=== PATIENT | female | born 1980 | race Caucasian/White ===

== ENCOUNTER → 2022-09-07 07:20 | Outpatient (CLI) | payer OTHER, SELFPAY ==
[2022-09-07 09:14] LABS: Influenza A - CEPHEID Flu A POSITIVE (NEGATIVE); Influenza B - CEPHEID Flu B NEGATIVE (NEGATIVE); Respiratory Syncytial Virus Negative (Negative)
[2022-09-07 09:15] LABS: COVID-19 CEPHEID 4-PLEX PCR Negative (Negative)
== END ==
PROVIDERS: Visit Provider Nurse Practitioner Family
DX: R05.1 Acute cough (principal); Z20.822 Contact with and (suspected) exposure to COVID-19
CPT/HCPCS: 0241U

== ENCOUNTER → 2023-09-17 08:35 | Outpatient (CLI) | payer OTHER, SELFPAY ==
[2023-09-17 09:52] LABS: Add Manual Diff / Slide Review NO; Basophils Absolute Auto 100 /uL (0-100); Basophils Percent Auto 0.9 % (0-2); Eosinophils Absolute Auto 0 /uL (0-450); Eosinophils Percent Auto 0.6 % (2-4); Hematocrit 35.9 % (36-46); Hemoglobin 12.1 g/dL (12.0-16.0); Lymphocytes Absolute Auto 2300 /uL (1100-4500); Lymphocytes Percent Auto 31.6 % (25-40); Mean Corpuscular HGB Conc 33.8 % (30-36); Mean Corpuscular Hemoglobin 30.6 PG (26-34); Mean Corpuscular Volume 90.4 fL (80-100); Monocytes Absolute Auto 600 /uL (0-900); Monocytes Percent Auto 8.6 % (3-14); Neutrophils Absolute Auto 4300 /uL (1500-7000); Neutrophils Percent Auto 58.3 % (50-75); Platelet Count 252 X10^3/uL (150-400); Red Blood Cell Count 3.97 X10^6/uL (4.0-5.2); Red Cell Distribution Width 13.7 % (11.6-14.8); White Blood Cell Count 7.4 X10^3/uL (4.5-11.0)
[2023-09-17 09:53] LABS: Hemoglobin A1C% w Est Avg Glu 5.1 % (4.0-6.0)
[2023-09-17 10:04] LABS: Alanine Aminotransferase 22 IU/L (<35); Albumin 4.4 g/dL (3.5-5.0); Albumin Globulin Ratio 1.5 (1.0-2.8); Alkaline Phosphatase 58 U/L (38-126); Aspartate Aminotransferase 24 IU/L (14-36); BUN Creatinine Ratio 15.2 (6-22); Bilirubin Total 1.4 mg/dL (0.2-1.3); Blood Urea Nitrogen 10 mg/dL (7-17); Calcium 9.4 mg/dL (8.4-10.2); Carbon Dioxide 24 mmol/L (22-32); Chloride 102 mmol/L (98-107); Cholesterol 172 mg/dL (140-199); Estimated Glomerular Filt Rate > 60 mL/min (>60); Globulin 2.9 g/dL (1.7-4.1); Glucose 85 mg/dL (70-100); HDL Cholesterol 48 mg/dL (40-60); HEMOLYSIS < 15 (0-50); LDL Cholesterol Calculated 104 mg/dL (<100); Sodium 135 mmol/L (137-145); Total Protein 7.3 g/dL (6.3-8.2); Triglycerides 98 mg/dL (35-150)
[2023-09-17 10:33] LABS: TSH w/ Reflex to FT4 3.19 uIU/mL (0.47-4.68)
== END ==
PROVIDERS: PCP Student in an Organized Health Care Education/Training Program; Referring Provider Student in an Organized Health Care Education/Training Program; Visit Provider Student in an Organized Health Care Education/Training Program
DX: R63.5 Abnormal weight gain (principal)
CPT/HCPCS: 36415; 80053; 80061; 83036; 84443; 85025

== ENCOUNTER → 2023-09-25 09:38 | Outpatient (CLI) | payer OTHER, SELFPAY ==
--- NOTE | 2023-09-25 09:39 | DI.MG.S_ITS ---
BILATERAL DIGITAL SCREENING MAMMOGRAM 3D/2D WITH CAD: 09/25/2023 CLINICAL: Routine screening. Baseline exam. No prior exams were available for comparison. Both breasts are heterogeneously dense, which may obscure small masses (category c / 51-75% glandular tissue). Current study was also evaluated with a Computer Aided Detection (CAD) system. No significant masses, calcifications, or other findings are seen in either breast. IMPRESSION: NEGATIVE There is no mammographic evidence of malignancy. A 1 year screening mammogram is recommended. Based on the Tyrer Cuzick model (a risk assessment model) the patient's lifetime risk is 9.3% and her 10 year risk is 1.5%. According to the ACR, ACS, and NCCN guidelines, an annual breast MRI exam along with mammogram is recommended if the patient's lifetime risk is 20% or greater. This exam was interpreted at Station ID: [id number]. NOTE: For mammograms, a report in lay terms will be sent to the patient. Approximately 15% of breast malignancies will not be visualized mammographically. In the management of a palpable breast mass, a negative mammogram must not discourage biopsy of a clinically suspicious lesion. Electronically Signed By: Jalen cunningham/katerina:09/28/2023 07:49:33 letter sent: Normal Exam ACR BI-RADS Category 1: Negative 3341F
== END ==
PROVIDERS: PCP Student in an Organized Health Care Education/Training Program; Referring Provider Student in an Organized Health Care Education/Training Program; Visit Provider Student in an Organized Health Care Education/Training Program
DX: Z12.31 Encounter for screening mammogram for malignant neoplasm of breast (principal)
CPT/HCPCS: 77063; 77067

== ENCOUNTER → 2024-05-30 13:35 | Outpatient (CLI) | payer OTHER, SELFPAY ==
[2024-05-30 14:29] LABS: Influenza A - CEPHEID Flu A NEGATIVE (NEGATIVE); Influenza B - CEPHEID Flu B NEGATIVE (NEGATIVE); Respiratory Syncytial Virus Negative (Negative)
[2024-05-30 14:35] LABS: COVID-19 CEPHEID 4-PLEX PCR POSITIVE (Negative)
== END ==
PROVIDERS: PCP Student in an Organized Health Care Education/Training Program; Visit Provider Nurse Practitioner Family
DX: R05.1 Acute cough (principal); J02.9 Acute pharyngitis, unspecified
CPT/HCPCS: 0241U; 87070; 87077; 87147

== ENCOUNTER 2024-07-07 09:40 | Emergency (ER) | payer OTHER, SELFPAY ==
[2024-07-07] VITALS (20 sets, daily range): BP systolic 100–128; BP diastolic 58–75; PULSE 74–115; RESP 15–20; TEMP 36.4; O2SAT 98–100; BMI 31.7
--- NOTE | 2024-07-07 09:58 | ED_ITS ---
HPI - General Adult General Chief complaint: Allergic Reaction Stated complaint: Throwing up . Unknown Allergic reaction Time Seen by Provider: 07/07/24 09:48 History of Present Illness HPI narrative: 44-year-old female triage as vomiting abdominal pain maybe having allergic reaction, had been using Ozempic since February, received a new shipment of the same formulation from the same pharmacy, that dose was taken yesterday, today with some itching and swelling to her right eye more so than left eye, rash around the bra line right chest, some rash and itching to the posterior neck. No sensation of tongue swelling or lip swelling. No new medications otherwise recalled. There was some exposure to some recent new maci, otherwise no recent exposures. No bites or stings or traumas. No wheezing or shortness of breath or chest pain. She did have an episode of nausea with nonbloody emesis. Denies abdominal discomfort at this time. Related Data Home Medications Medication Instructions Recorded Confirmed prednisolone acetate 1 % eye 1 drp EYE-BOTH 1-2XD 08/13/23 07/07/24 drops,suspension (Pred Forte) semaglutide 1 mg/dose (4 mg/3 mL) 1 mg SUBCUT QWEEK 05/30/24 07/07/24 subcutaneous pen injector Previous Rx's Medication Instructions Recorded escitalopram oxalate 20 mg tablet 20 mg PO DAILY #90 tabs 09/13/23 (Lexapro) bupropion HCl 150 mg 24 hr tablet, 150 mg PO QAM #90 tabs 11/09/23 extended release (Wellbutrin XL) diphenhydramine HCl 50 mg tablet 50 mg PO Q6H PRN allergic reaction 07/07/24 #30 tabs epinephrine 0.3 mg/0.3 mL 0.3 mg (0.3 mL) IM Q5-15M PRN 07/07/24 injection syringe anaphylaxis #2 ea prednisone 20 mg tablet 40 mg (2 x 20 mg) PO DAILY 5 days 07/07/24 #10 tabs Allergies Allergy/AdvReac Type Severity Reaction Status Date / Time No Known Drug Allergies Allergy Verified 05/30/24 13:37 Review of Systems Review of Systems Narrative: see HPI Patient History Medical History (Updated 07/07/24 @ 11:06 by Paramjit King MD) Depression Right eye injury Social History Smoking Status: Never smoker Smoking Status: Never smoker Exam Narrative Exam Narrative: GENERAL: Well-developed patient, in mild distress. HEAD: Atraumatic. Normocephalic. EYES: Pupils equal round and reactive. Extraocular motions intact. No scleral icterus. No injection or drainage. Some swelling to the right upper eyelid and periorbital area, slight pink erythema with swelling to the left upper eyelid. ENT: Nose without bleeding, purulent drainage. Throat without erythema, tonsillar hypertrophy or exudate. Airway patent. No obvious tongue swelling, no swelling to upper or lower lip, moves neck well, normal phonation. NECK: Trachea midline. Non tender CARDIOVASCULAR: Regular rate and rhythm without murmurs, gallops, or rubs. RESPIRATORY: No respiratory distress, lung sounds clear bilateral. Breath sounds equal bilaterally. No wheezes, rales, or rhonchi. No respiratory distress in supine position. GASTROINTESTINAL: Abdomen soft, non-tender, nondistended. Right upper anterior abdominal area erythema with urticaria. EXTREMITIES: No edema or joint tenderness. BACK: Nontender without deformity or crepitance. No flank tenderness. NEURO: AOx3. Motor functions grossly nonfocal SKIN: No rash or erythema of visible areas Initial Vital Signs Initial Vital Signs: Vital Signs Pulse Rate 111 H 07/07/24 09:45 Pulse Oximetry 100 07/07/24 09:45 Course Orders Ordered: Discontinued Medications Diphenhydramine HCl (Diphenhydramine 50 Mg/Ml Vial) 50 mg IV NOW ONE Stop: 07/07/24 10:02 Last Admin: 07/07/24 10:04 Dose: 50 mg Documented By: VENKAT Sodium Chloride (Normal Saline 0.9%) 1,000 mls @ 500 mls/hr IV BOLUS ONE Stop: 07/07/24 12:01 Last Infusion: 07/07/24 11:43 Dose: Infused Documented By: Admin: 07/07/24 10:05 Dose: 500 mls/hr Documented By: CTS Methylprednisolone (Methylprednisolone 125 Mg/2 Ml Vial) 125 mg IV NOW ONE Stop: 07/07/24 10:02 Last Admin: 07/07/24 10:04 Dose: 125 mg Documented By: CTS Ondansetron HCl (Ondansetron 4 Mg/2 Ml Inj) 4 mg IV NOW ONE Stop: 07/07/24 09:53 Last Admin: 07/07/24 10:03 Dose: 4 mg Documented By: CTS Vital Signs Vital signs: Vital Signs - 8 hr 07/07/24 12:30 07/07/24 12:30 07/07/24 12:45 Pulse Rate 74 75 Respiratory Rate 16 20 Blood Pressure 115/63 Pulse Oximetry 98 98 07/07/24 12:45 07/07/24 13:00 07/07/24 13:00 Pulse Rate 80 Respiratory Rate 18 Blood Pressure 113/60 117/62 Pulse Oximetry 99 07/07/24 13:15 07/07/24 13:15 07/07/24 13:30 Pulse Rate 79 Respiratory Rate 19 Blood Pressure 114/62 114/62 Pulse Oximetry 99 07/07/24 13:30 07/07/24 13:45 07/07/24 13:45 Pulse Rate 82 79 Respiratory Rate 16 18 Blood Pressure 114/58 L Pulse Oximetry 98 98 07/07/24 14:00 07/07/24 14:00 07/07/24 14:15 Pulse Rate 80 81 Respiratory Rate 16 16 Blood Pressure 112/63 Pulse Oximetry 98 98 07/07/24 14:15 Pulse Rate Respiratory Rate Blood Pressure 112/59 L Pulse Oximetry Medical Decision Making Lab Data 07/07/24 09:58 07/07/24 09:58 Labs: Lab Results 07/07/24 Range/Units 09:58 WBC 15.3 H (4.5-11.0) X10^3/uL RBC 4.26 (4.0-5.2) X10^6/uL Hgb 12.8 (12.0-16.0) g/dL Hct 38.0 (36-46) % MCV 89.2 (80-100) fL MCH 30.1 (26-34) PG MCHC 33.8 (30-36) % RDW 13.4 (11.6-14.8) % Plt Count 300 (150-400) X10^3/uL Neut % (Auto) Not Reportable Lymph % (Auto) Not Reportable Whitley % (Auto) Not Reportable Eos % (Auto) Not Reportable Baso % (Auto) Not Reportable Lymph # (Auto) Not Reportable Whitley # (Auto) Not Reportable Baso # (Auto) Not Reportable Total Counted 100 Seg Neutrophils % 80.0 H (38-70) % Lymphocytes % (Manual) 19.0 L (25-45) % Monocytes % (Manual) 1.0 L (2-11) % Neutrophils # (Manual) 86947 H (5044-4935) /uL RBC Morphology Normal morphology Sodium 135 L (137-145) mmol/L Potassium 3.8 (3.4-5.1) mmol/L Chloride 104 (98-107) mmol/L Carbon Dioxide 24 (22-32) mmol/L BUN 10 (7-17) mg/dL Creatinine 0.68 (0.52-1.04) mg/dL Estimated GFR > 60 (>60) mL/min BUN/Creatinine Ratio 14.7 (6-22) Glucose 91 (70-100) mg/dL Calcium 9.1 (8.4-10.2) mg/dL Total Bilirubin 1.1 (0.2-1.3) mg/dL AST 18 (14-36) IU/L ALT 17 (<35) IU/L Alkaline Phosphatase 58 (38-126) U/L Total Protein 6.9 (6.3-8.2) g/dL Albumin 4.0 (3.5-5.0) g/dL Globulin 2.9 (1.7-4.1) g/dL Albumin/Globulin Ratio 1.4 (1.0-2.8) Lipase 103 (23-300) U/L Point of Care Testing Test Results Negative Urine Dip Bedside Urine Glucose Negative Bedside Urine Bilirubin - Negative Bedside Urine Ketone - Negative Urine Specific [place] 1.010 Bedside Urine Occult Blood - Negative Bedside Urine pH 7.5 Bedside Urine Protein - Negative Bedside Urine Urobilinogen - Negative Bedside Urine Nitrite - Negative Bedside Urine Leukocytes - Negative Esterase Point of care testing: Point of Care Testing Test Results Negative Urine Dip Bedside Urine Glucose Negative Bedside Urine Bilirubin - Negative Bedside Urine Ketone - Negative Urine Specific [place] 1.010 Bedside Urine Occult Blood - Negative Bedside Urine pH 7.5 Bedside Urine Protein - Negative Bedside Urine Urobilinogen - Negative Bedside Urine Nitrite - Negative Bedside Urine Leukocytes - Negative Esterase MDM Narrative Medical decision making narrative: Likely anaphylactoid reaction, possibly to recent formulation dose of Ozempic, no other definite exposures or causes identified. Urticaria to anterior abdomen and right periorbital and left upper eyelid regions, some nausea and emesis, sinus tachycardia. Normotensive at this time. IV fluid, IV Solu-Medrol, IV Benadryl. Can add IM epinephrine if needed, will observe for initial response to steroids and antihistamines for now. Labs sent from triage due to alleged abdominal pain, there is no abdominal pain. Advised to avoid Ozempic for now, as it might be the culprit for her current anaphylactoid symptoms. 1100, patient not progressing and symptoms, feels some improvement, some dry mouth with Benadryl. We will hold on parenteral epinephrine for now. Further observe for now. She does not have EpiPen at home, advised that she has a couple of sets to use if needed, we will send to her pharmacy. We will also send prescriptions for further oral steroid and oral antihistamines next few days use. Further improved, DC home with family. Rx for EpiPen, Pred pulse, Benadryl. Advised to avoid Ozempic Discharge Plan Departure Patient Disposition: Home Clinical Impression: Anaphylactoid reaction, Allergic drug reaction Activity Restrictions/Additional Instructions: Allergic reaction symptoms with some nausea and vomiting, anaphylactoid, possibly related to recent Ozempic medication. Urticaria hives reaction truncal and posterior neck as well as right eyelid and periorbital region, and left upper eyelid as well. No swelling of the tongue or lips. IV steroid Solu- Medrol given, IV antihistamine Benadryl given. Symptoms stopped progressing, and then over hours diminished, significantly improved. You will need further steroids for the next few days, further antihistamines next few days, oral prescription medication sent to your pharmacy. Consider also use of epinephrine anaphylaxis injection kit, 2 doses that you might need to give intramuscularly if you are having severe reaction symptoms remote from care, refill also prescribed. Recheck with your regular doctor early this next week. Avoid further Ozempic medication as this might have been the cause of your symptoms. Return earlier to this/nearest emergency department for any change worsening symptoms or any concerns prior Prescriptions: New epinephrine 0.3 mg/0.3 mL syringe 0.3 mg IM Q5-15M PRN (Reason: anaphylaxis) Qty: 2 1RF Rx Instructions: do not exceed 3 doses per episode diphenhydramine HCl 50 mg tablet 50 mg PO Q6H PRN (Reason: allergic reaction) Qty: 30 0RF prednisone 20 mg tablet 40 mg PO DAILY 5 Days Qty: 10 0RF No Action escitalopram oxalate [Lexapro] 20 mg tablet 20 mg PO DAILY Qty: 90 3RF semaglutide 1 mg/dose (4 mg/3 mL) pen injector 1 mg SUBCUT QWEEK prednisolone acetate [Pred Forte] 1 % drops,suspension 1 drp EYE-BOTH 1-2XD Patient Comments: [NO ORIGINAL SIG] bupropion HCl [Wellbutrin XL] 150 mg tablet extended release 24 hr 150 mg PO QAM Qty: 90 5RF Stand Alone Forms: Patient Portal/API
[2024-07-07] MEDS: ONDANSETRON 4 MG/2 ML INJ IV (10:03)
[2024-07-07] MEDS: methylPREDNISolone 125 MG/2 ML VIAL IV (10:04)
[2024-07-07] MEDS: diphenhydrAMINE 50 MG/ML VIAL IV (10:04)
[2024-07-07] MEDS: SODIUM CHLORIDE 0.9% 1,000 ML 500 ML IV (10:05)
[2024-07-07 10:09] LABS: Add Manual Diff / Slide Review YES; Hemoglobin 12.8 g/dL (12.0-16.0); Mean Corpuscular HGB Conc 33.8 % (30-36); Mean Corpuscular Hemoglobin 30.1 PG (26-34); Mean Corpuscular Volume 89.2 fL (80-100); Platelet Count 300 X10^3/uL (150-400); Red Blood Cell Count 4.26 X10^6/uL (4.0-5.2); Red Cell Distribution Width 13.4 % (11.6-14.8); White Blood Cell Count 15.3 X10^3/uL (4.5-11.0)
[2024-07-07 10:24] LABS: Alanine Aminotransferase 17 IU/L (<35); Albumin Globulin Ratio 1.4 (1.0-2.8); Alkaline Phosphatase 58 U/L (38-126); Aspartate Aminotransferase 18 IU/L (14-36); BUN Creatinine Ratio 14.7 (6-22); Bilirubin Total 1.1 mg/dL (0.2-1.3); Blood Urea Nitrogen 10 mg/dL (7-17); Calcium 9.1 mg/dL (8.4-10.2); Carbon Dioxide 24 mmol/L (22-32); Chloride 104 mmol/L (98-107); Estimated Glomerular Filt Rate > 60 mL/min (>60); Globulin 2.9 g/dL (1.7-4.1); Glucose 91 mg/dL (70-100); HEMOLYSIS < 15 (0-50); Lipase 103 U/L (23-300); Potassium 3.8 mmol/L (3.4-5.1); Sodium 135 mmol/L (137-145); Total Protein 6.9 g/dL (6.3-8.2)
[2024-07-07 10:29] LABS: Neutrophils Absolute Manual 12240 /uL (3000-5900); Total Cells Counted 100
[2024-07-07 10:30] LABS: RBC Morphology Normal Morphology
== END 2024-07-07 14:28 | disposition home or self-care (01) ==
PROVIDERS: Emergency Provider Emergency Medicine
DX: T88.6XXA Anaphylactic reaction due to adverse effect of correct drug or medicament properly administered, initial encounter (principal); T50.995A Adverse effect of other drugs, medicaments and biological substances, initial encounter
CPT/HCPCS: 36415; 80053; 81003; 81025; 83690; 85007; 85025; 96361; 96374; 96375; 99284; J1200; J2405; J2919

== ENCOUNTER → 2024-08-07 08:46 | Outpatient (CLI) | payer OTHER, SELFPAY ==
[2024-08-07 09:33] LABS: Influenza A - CEPHEID Flu A NEGATIVE (NEGATIVE); Influenza B - CEPHEID Flu B NEGATIVE (NEGATIVE); Respiratory Syncytial Virus Negative (Negative)
[2024-08-07 09:34] LABS: COVID-19 CEPHEID 4-PLEX PCR Negative (Negative)
== END ==
PROVIDERS: Visit Provider Physician Assistant Surgical
DX: R05.1 Acute cough (principal)
CPT/HCPCS: 0241U

== ENCOUNTER → 2024-11-09 16:45 | Outpatient (CLI) | payer OTHER, SELFPAY ==
[2024-11-09 17:19] LABS: Add Manual Diff / Slide Review NO; Basophils Absolute Auto 100 /uL (0-100); Basophils Percent Auto 1.2 % (0-2); Eosinophils Absolute Auto 100 /uL (0-450); Eosinophils Percent Auto 0.8 % (2-4); Hematocrit 35.9 % (36-46); Hemoglobin 12.1 g/dL (12.0-16.0); Lymphocytes Absolute Auto 3500 /uL (1100-4500); Lymphocytes Percent Auto 33.5 % (25-40); Mean Corpuscular HGB Conc 33.7 % (30-36); Mean Corpuscular Hemoglobin 30.2 PG (26-34); Mean Corpuscular Volume 89.7 fL (80-100); Monocytes Absolute Auto 600 /uL (0-900); Neutrophils Absolute Auto 6200 /uL (1500-7000); Neutrophils Percent Auto 58.5 % (50-75); Platelet Count 316 X10^3/uL (150-400); Red Cell Distribution Width 13.5 % (11.6-14.8); White Blood Cell Count 10.5 X10^3/uL (4.5-11.0)
[2024-11-09 17:36] LABS: Hemoglobin A1C% w Est Avg Glu 5.4 % (4.0-6.0)
[2024-11-09 17:39] LABS: Alanine Aminotransferase 18 IU/L (<35); Albumin 4.1 g/dL (3.5-5.0); Albumin Globulin Ratio 1.6 (1.0-2.8); Alkaline Phosphatase 58 U/L (38-126); Aspartate Aminotransferase 23 IU/L (14-36); BUN Creatinine Ratio 14.9 (6-22); Bilirubin Total 0.4 mg/dL (0.2-1.3); Blood Urea Nitrogen 11 mg/dL (7-17); Carbon Dioxide 26 mmol/L (22-32); Chloride 105 mmol/L (98-107); Cholesterol 154 mg/dL (140-199); Estimated Glomerular Filt Rate > 60 mL/min (>60); Globulin 2.6 g/dL (1.7-4.1); Glucose 102 mg/dL (70-100); HDL Cholesterol 45 mg/dL (40-60); HEMOLYSIS < 15 (0-50); LDL Cholesterol Calculated 74 mg/dL (<100); Potassium 3.4 mmol/L (3.4-5.1); Sodium 137 mmol/L (137-145); Total Protein 6.7 g/dL (6.3-8.2); Triglycerides 176 mg/dL (35-150)
[2024-11-09 17:56] LABS: Follicle Stimulating Hormone 3.57 mIU/mL
[2024-11-09 18:09] LABS: Thyroid Stimulating Hormone 2.94 uIU/mL (0.47-4.68)
== END ==
PROVIDERS: PCP Student in an Organized Health Care Education/Training Program; Referring Provider Student in an Organized Health Care Education/Training Program; Visit Provider Student in an Organized Health Care Education/Training Program
DX: E66.9 Obesity, unspecified (principal); N92.6 Irregular menstruation, unspecified
CPT/HCPCS: 36415; 80053; 80061; 83001; 83036; 84443; 85025

== ENCOUNTER → 2024-11-30 15:03 | Outpatient (CLI) | payer OTHER, SELFPAY ==
[2024-11-30 15:54] LABS: HEMOLYSIS < 15 (0-50); Iron 71 ug/dL (37-170)
[2024-11-30 16:05] LABS: Percent Iron Saturation 20 % (15-50); Total Iron Binding Capacity 352 ug/dL (265-497); Transferrin 341 mg/dL (206-381)
[2024-11-30 16:32] LABS: Ferritin 49 ng/mL (6-137)
== END ==
LOC: LAB 15:04
PROVIDERS: PCP Student in an Organized Health Care Education/Training Program; Referring Provider Student in an Organized Health Care Education/Training Program; Visit Provider Student in an Organized Health Care Education/Training Program
DX: R53.83 Other fatigue (principal)
CPT/HCPCS: 36415; 82728; 83540; 83550

== ENCOUNTER → 2024-12-22 15:55 | Outpatient (CLI) | payer OTHER, SELFPAY ==
--- NOTE | 2024-12-22 15:57 | DI.MG.S_ITS ---
MM screening mammo BI: 12/22/2024. BI-RADS: 1 CLINICAL: 44-year old female for bilateral screening mammogram. Tyrer-Cuzick lifetime risk of 9.8%. No personal or first-degree family history of breast cancer. PRIOR EXAMS 09/25/2023. MAMMOGRAPHY TECHNIQUE: 2D and 3D (tomosynthesis) digital mammographic views obtained, with additional images as needed for full coverage. Current study was also evaluated with a Computer Aided Detection (CAD) system. DENSITY C. The breasts are heterogeneously dense, which may obscure small masses. MAMMOGRAPHY FINDINGS Bilateral: No suspicious mass, asymmetry, microcalcification, or other abnormality seen. No significant change from comparison. IMPRESSION: * No evidence of malignancy. RECOMMENDATIONS Bilateral * Annual screening mammography. OVERALL ASSESSMENT CATEGORY BI-RADS-1: Negative. The [employer] recommends annual screening mammography beginning at age 40 for women with average risk of breast cancer. ELECTRONICALLY SIGNED: Veronica Troncoso M.D. on 12/25/2024 at 08:58:08 AM PT Interpreting Station ID: [id number]
== END ==
PROVIDERS: PCP Student in an Organized Health Care Education/Training Program; Referring Provider Student in an Organized Health Care Education/Training Program; Visit Provider Student in an Organized Health Care Education/Training Program
DX: Z12.31 Encounter for screening mammogram for malignant neoplasm of breast (principal); R92.333 Mammographic heterogeneous density, bilateral breasts
CPT/HCPCS: 77063; 77067

== ENCOUNTER → 2024-12-23 09:20 | Outpatient (CLI) | payer OTHER, SELFPAY ==
--- NOTE | 2024-12-23 09:22 | DI.MRI.S_ITS ---
PROCEDURE: MR CERVICAL SPINE WO/W CON INDICATIONS: Multiple Sclerosis TECHNIQUE: Noncontrast sagittal T1 spin echo and T2 fast spin echo, sagittal STIR, sagittal PD fast spin echo, foraminal oblique sagittal T2 fast spin echo, axial gradient echo or T2 fast spin echo through the cervical spine. After the administration of contrast, sagittal and axial T1 spin echo with fat saturation through the cervical spine. COMPARISON: [facility], MR, MR HEAD/BRAIN WO/W CON, 12/23/2024, 9:37. [facility], MR, MR THORACIC SPINE WO/W CON, 12/23/2024, 9:37. FINDINGS: Image quality: Excellent. Alignment and curvature: There is normal bony alignment. Marrow: Marrow demonstrates normal overall signal. Spinal cord: Visualized spinal cord is normal in size. There is mild heterogeneous increased intramedullary signal from C4 through C6. No definitive suspicious intramedullary enhancement. No cerebellar tonsillar herniation. Paraspinous soft tissues: No paravertebral masses or suspicious enhancement. C2-C3: No disc bulge, spinal stenosis or foraminal narrowing. C3-C4: No disc bulge, spinal stenosis or foraminal narrowing. C4-C5: No disc bulge, spinal stenosis or foraminal narrowing. C5-C6: No disc bulge, spinal stenosis or foraminal narrowing. C6-C7: No disc bulge, spinal stenosis or foraminal narrowing. C7-T1: No disc bulge, spinal stenosis or foraminal narrowing. IMPRESSION: Heterogeneous intramedullary signal from C4 through C6 suspicious for demyelinating plaque. Dictated by: Maggie Domínguez M.D. on 12/25/2024 at 13:39 Approved by: Maggie Domínguez M.D. on 12/25/2024 at 13:41
--- NOTE | 2024-12-23 09:22 | DI.MRI.S_ITS ---
PROCEDURE: MR THORACIC SPINE WO/W CON INDICATIONS: Multiple Sclerosis TECHNIQUE: Noncontrast sagittal T1 spin echo and T2 fast spin echo, sagittal STIR, axial T1 and T2 fast spin echo through the thoracic spine. After the administration of contrast, axial and sagittal T1 spin echo with fat saturation through the thoracic spine. COMPARISON: [facility], , MR CERVICAL SPINE WO/W CON, 12/23/2024, 9:37. FINDINGS: Image quality: Excellent. Alignment and curvature: There is normal bony alignment. Marrow: Marrow is of normal overall signal. Focus of decreased T1 and T2 signal intensity at T7. No enhancement. No acute vertebral body compression fractures. Spinal cord: Visualized spinal cord is of normal signal and size, without abnormal enhancement. Paraspinous soft tissues: No paravertebral masses or abnormal enhancement. Miscellaneous: Central canal and foramina appear widely patent at all scanned levels. IMPRESSION: No areas of abnormal cord signal intensity. Hypointense T1 and T2 signal at T7. This is overall nonspecific. This could represent a lipid poor hemangioma. It is nonenhancing. Dictated by: Maggie Domínguez M.D. on 12/25/2024 at 13:42 Approved by: Maggie Domínguez M.D. on 12/25/2024 at 13:46
--- NOTE | 2024-12-23 09:22 | DI.MRI.S_ITS ---
PROCEDURE: MR HEAD/BRAIN WO/W CON INDICATIONS: Multiple Sclerosis TECHNIQUE: Noncontrast sagittal and axial FLAIR, axial and coronal T2 fast spin echo, axial VIBE, axial gradient echo, axial diffusion and ADC through the brain. After the administration of contrast, axial and coronal and sagittal VIBE with fat saturation through the brain. COMPARISON: [facility], MR, MR CERVICAL SPINE WO/W CON, 12/23/2024, 9:37. FINDINGS: Image quality: Excellent. CSF spaces: Ventricles are normal in size and shape. Basal cisterns are patent. No extra-axial fluid collections. Brain: No intracranial bleeds or mass effects. Acevedo-white matter interface appears intact. There are approximately 7-10 foci of increased signal within the periventricular and subcortical white matter. Several demonstrate T1 hypointensity. No abnormal intracranial enhancement. Diffusion weighted images show no acute ischemic insults. Brainstem appears normal. Normal intravascular flow voids are present. Skull and face: Calvarial marrow signal is normal. Orbits appear normal. Sinuses: Sinuses and mastoids are clear. IMPRESSION: Several scattered hyperintense periventricular and subcortical white matter foci. While these are overall nonspecific, they can be seen with multiple sclerosis as in given history. Other etiologies can include vasculitis, migraine sequela or infection/inflammation. Dictated by: Maggie Domínguez M.D. on 12/25/2024 at 13:32 Approved by: Maggie Domínguez M.D. on 12/25/2024 at 13:34
== END ==
LOC: MRI 09:21
PROVIDERS: PCP Student in an Organized Health Care Education/Training Program; Referring Provider Student in an Organized Health Care Education/Training Program; Visit Provider Student in an Organized Health Care Education/Training Program
DX: G35 Multiple sclerosis (principal)
CPT/HCPCS: 70553; 72156; 72157; A9579